=== PATIENT | male | born 1950 | race Caucasian/White ===

== ENCOUNTER → 2017-03-26 | Outpatient (CLI) | payer MEDICARE, BC ==
--- NOTE | 2017-03-26 10:05 | MR ---
EXAMINATION TYPE: MR knee RT wo con DATE OF EXAM: 03/26/2017 9:31 AM COMPARISON: NONE HISTORY: Rt, knee pain TECHNIQUE: Multiplanar, multisequence imaging of the right knee is performed without IV contrast. FINDINGS: MEDIAL MENISCUS: Comp tear posterior horn medial meniscus LATERAL MENISCUS: Complex tear posterior horn and body lateral meniscus CRUCIATE LIGAMENTS: The anterior and posterior cruciate ligaments are intact and unremarkable. COLLATERAL LIGAMENTS: The medial collateral ligament and lateral collateral ligament complex are inta ct and unremarkable. EXTENSOR MECHANISM: Visualized quadriceps and patellar tendons are intact. EFFUSION: No significant suprapatellar joint effusion. POPLITEAL CYST: There are tiny multilobulated cyst seen posterior to the tibia near the tibiofibular synchondrosis which may represent tiny popliteal fossa cyst. Tiny ganglion cyst in the differential. TRICOMPARTMENT SPACES: There is grade III chondromalacia of the patellar cartilage involving the apex of patella. Congenital bipartite patella. Narrowing of all joint space is seen with most marked quintero ges involving the medial compartment of the knee. Chondromalacia involving the articular femoral cart ilage noted. BONE MARROW SIGNAL: No focal abnormal marrow signal is appreciated. IMPRESSION: 1. 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 2. Complex tears involving the posterior horn of the medial and lateral meniscus. 3. Posterior fossa cyst or ganglion cyst as discussed above.
== END | disposition home or self-care (01) ==
LOC: RADMRIMAIN 08:43
PROVIDERS: ATTEND Family Medicine
DX: S83.231A Complex tear of medial meniscus, current injury, right knee, initial encounter (principal); S83.271A Complex tear of lateral meniscus, current injury, right knee, initial encounter; M17.11 Unilateral primary osteoarthritis, right knee; M22.41 Chondromalacia patellae, right knee

== ENCOUNTER → 2021-03-30 | Outpatient (CLI) | payer MEDICARE, BC ==
[2021-03-30 11:17] LABS: Basophils # (A) 0.1 k/uL (0-0.2); Basophils % (A) 1 %; Eosinophils # (A) 0.1 k/uL (0-0.7); Eosinophils % (A) 1 %; HCT 44.8 % (39.0-53.0); HGB 15.3 gm/dL (13.0-17.5); Lymphocytes # (A) 1.7 k/uL (1.0-4.8); Lymphocytes % (A) 31 %; MCH 30.6 pg (25.0-35.0); MCHC 34.1 g/dL (31.0-37.0); MCV 89.7 fL (80.0-100.0); Mean Platelet Volume 6.5; Monocytes # (A) 0.4 k/uL (0-1.0); Monocytes % (A) 8 %; Neutrophils # (A) 3.1 k/uL (1.3-7.7); Neutrophils % (A) 57 %; Platelet Count 283 k/uL (150-450); RDW 12.7 % (11.5-15.5); WBC 5.3 k/uL (3.8-10.6)
[2021-03-30 12:19] LABS: Appearance,Urine Clear (Clear); Bilirubin,Urine Negative (Negative); Blood,Urine Negative (Negative); Color,Urine Yellow; Glucose,Urine (UA) Negative (Negative); Ketones,Urine Negative (Negative); Leukocyte Esterase,Urine Negative (Negative); Nitrite,Urine Negative (Negative); Protein,Urine Negative (Negative); Specific Gravity,Urine 1.025 (1.001-1.035); Urobilinogen,Urine <2.0 mg/dL (<2.0)
== END | disposition home or self-care (01) ==
LOC: LABPAT 10:20
PROVIDERS: ATTEND Urology
DX: Z01.812 Encounter for preprocedural laboratory examination (principal); N40.1 Benign prostatic hyperplasia with lower urinary tract symptoms
CPT/HCPCS: 36415; 81003; 85025; 86850; 86900; 86901; 87086

== ENCOUNTER → 2021-03-30 | Outpatient (CLI) | payer MEDICARE, BC ==
[2021-03-30 15:48] LABS: African American GFR (CKD) 88.6 (60.0-200.0); Albumin 4.3 g/dL (3.80-4.90); Albumin/Globulin Ratio 1.54 (1.60-3.17); Anion Gap 5.7 mmol/L (4.00-12.00); Calcium 9.1 mg/dL (8.7-10.3); Carbon Dioxide 31.3 mmol/L (21.6-31.8); Chol/HDL Ratio 3.66; Globulin 2.8 g/dL (1.6-3.3); LDL Cholesterol,Calculated 128.4 mg/dL (0.0-131.0); Non-African American GFR(CKD) 76.5 (60.0-200.0); Potassium 4.1 mmol/L (3.5-5.5); Total Bilirubin 0.7 mg/dL (0.2-1.2); Total Protein 7.1 g/dL (6.2-8.2); VLDL Calculation 12.6 mg/dL (5.00-40.00)
== END | disposition home or self-care (01) ==
LOC: LABWHC1 10:23
PROVIDERS: ATTEND Physician Assistant Medical
DX: Z00.00 Encounter for general adult medical examination without abnormal findings (principal); Z13.228 Encounter for screening for other metabolic disorders; Z13.220 Encounter for screening for lipoid disorders; N40.1 Benign prostatic hyperplasia with lower urinary tract symptoms; Z68.28 Body mass index [BMI] 28.0-28.9, adult
CPT/HCPCS: 36415; 80053; 80061

== ENCOUNTER 2021-04-06 05:44 | Day surgery (SDC) | payer MEDICARE, BC ==
[2021-04-02 10:33] VITALS: BMI 27.1
--- NOTE | 2021-04-05 16:24 | P.HPIHPCON ---
History of Present Illness H&P Date: 04/05/21 this is a 70 yo male with hx of significant BPH, has bothersome symptoms despite medical therapy. TRUS demonstrated 120 gram prostate, with significant medial lobe. I discussed wit him given his size of his prostate the two surgical options are simple prostatectomy or HoLEP. Discussed risk and benefit of each approach. Discussed with him the risk of bleeding, infection, injury to nearby organ, persistent BPH, urinary incontinence. Also discussed risk from anesthesia with him. He understood all the risks and agreed to proceed with robotic simple prostatectomy Consent for Procedure: I have explained the operation/procedure to the patient, including the risks, benefits, side effects, alternative therapies (including not receiving the proposed treatment or service), the likelihood of the patient achieving his/her goals, and potential recuperation problems for the procedure/sedation/analgesia, as well as any blood products, if indicated. I also explained to the patient the risks, benefits and side effects of the alternatives, as well as the risks related to not receiving the proposed procedure, care, treatment, or services. Past Medical History Past Medical History: Prostate Disorder Additional Past Medical History / Comment(s): "shoulder issues from years of playing hockey", enlarged prostate History of Any Multi-Drug Resistant Organisms: None Reported Past Surgical History: Orthopedic Surgery Additional Past Surgical History / Comment(s): arthroscopy knee(not sure which knee), mole removed from back Past Anesthesia/Blood Transfusion Reactions: No Reported Reaction Smoking Status: Never smoker - Past Family History Father Family Medical History: Cancer Additional Family Medical History / Comment(s): bladder Mother Family Medical History: Blood Disorder Additional Family Medical History / Comment(s): pt does not have name of disorder Medications and Allergies Home Medications Medication Instructions Recorded Confirmed Type No Known Home Medications 04/02/21 04/02/21 History Allergies Allergy/AdvReac Type Severity Reaction Status Date / Time acetaminophen Allergy cold Verified 04/02/21 10:24 [From Darvocet-N] sweats, dizzy doxycycline [From Doryx] Allergy Unknown Verified 04/02/21 10:44 propoxyphene [From Darvon] Allergy cold Verified 04/02/21 10:24 sweats, dizzy sulfamethoxazole Allergy Rash/Hives Verified 04/02/21 10:24 [From Septra] trimethoprim [From Septra] Allergy Rash/Hives Verified 04/02/21 10:24 Surgical - Exam - General well developed, well nourished, no distress, no pain - Respiratory normal expansion, normal respiratory effort - Abdomen Abdomen: soft, non tender Assessment and Plan Assessment: 70-year-old male with history of BPH -Or for robotic simple prostatectomy
[~2021-04-06 05:44] MED LIST: HEPARIN SODIUM,PORCINE/PF 5,000 UNIT/0.5 ML SYRINGE SQ PRN
[2021-04-06] MEDS ORDERED: MIDAZOLAM 2 MG/2 ML VIAL IV PRN (05:50)
[2021-04-06] MEDS ORDERED: LIDOCAINE 1% (10MG/ML) FOR IV START INTRADERMA PRN (05:50)
[2021-04-06] MEDS ORDERED: DEXAMETHASONE SOD PHOSPHATE 4 MG/ML 1 ML VIAL IV ONE (05:50)
[2021-04-06] MEDS ORDERED: ONDANSETRON 4 MG/2 ML VIAL IVP ONE (05:50)
[2021-04-06] MEDS: LACTATED RINGERS 1,000 ML IV SCH (06:39)
[2021-04-06] MEDS ORDERED: MIDAZOLAM 2 MG/2 ML VIAL IVP ONE (06:52)
[2021-04-06] MEDS ORDERED: fentaNYL (PF) 50 MCG/ML 2 ML AMP IVP ONE (06:53)
[2021-04-06] MEDS ORDERED: HYDROmorphone 0.5 MG/0.5 ML SYRINGE IVP PRN (07:00)
[2021-04-06] MEDS ORDERED: fentaNYL (PF) 50 MCG/ML 2 ML AMP ONE (07:49)
[2021-04-06] MEDS ORDERED: NEOSTIGMINE 1 MG/ML 10 ML VIAL ONE (07:49)
[2021-04-06] MEDS ORDERED: GLYCOPYRROLATE 0.2 MG/ML 2 ML VIAL ONE (07:49)
[2021-04-06] MEDS ORDERED: PROPOFOL 10 MG/ML 20 ML VIAL IV ONE (07:49)
[2021-04-06] MEDS ORDERED: ROCURONIUM 10 MG/ML (5 ML VIAL) IV ONE (07:49)
[2021-04-06] MEDS ORDERED: SUCCINYLCHOLINE CHLORIDE 100 MG/5 ML SYR IV ONE (07:49)
[2021-04-06] MEDS ORDERED: WATER FOR INJECTION, STERILE 10 ML VIAL IV ONE (07:49)
[2021-04-06] MEDS ORDERED: LIDOCAINE 1% INJ 10MG/ML (20 ML MDV) ONE (07:49)
[2021-04-06] MEDS ORDERED: ROPIVACAINE 5 MG/ML 30 ML VIAL ONE (07:49)
[2021-04-06] MEDS ORDERED: ePHEDrine SULFATE/0.9% NACL/PF 50 MG/5 ML SYRINGE IV ONE (07:49)
[2021-04-06] MEDS ORDERED: BUPIVACAINE (PF) 0.5% 30 ML VIAL SQ ONE ×2 (08:15)
[2021-04-06] MEDS ORDERED: traMADol 50 MG TAB PO PRN (11:34)
--- NOTE | 2021-04-06 11:41 | P.OP ---
Date of Procedure: 04/06/21 Preoperative Diagnosis: BPH Postoperative Diagnosis: Same Procedure(s) Performed: Robotic-assisted laparoscopic simple prostatectomy Implants: None Anesthesia: JEANNE Surgeon: Pascual Baca Fractionating Still Operator #1: Abby Perez Estimated Blood Loss (ml): 200 Pathology: other (prostate adenoma) Condition: stable Disposition: PACU Indications for Procedure: this is a 70 yo male with hx of significant BPH, has bothersome symptoms despite medical therapy. TRUS demonstrated 120 gram prostate, with significant medial lobe. I discussed wit him given his size of his prostate the two surgical options are simple prostatectomy or HoLEP. Discussed risk and benefit of each approach. Discussed with him the risk of bleeding, infection, injury to nearby organ, persistent BPH, urinary incontinence. Also discussed risk from anesthesia with him. He understood all the risks and agreed to proceed with robotic simple prostatectomy Operative Findings: Trilobar hyperplasia with significant medial lobe Description of Procedure: After preoperative antibiotics were started, the patient was taken to the operating room. Anesthesia was induced and the patient was placed in a supine position with adequate padding of the pressure points, shoulders, back, legs and arms. He was then prepped and draped in the standard fashion. A critical pause was performed using two patient identifiers. A 16F calderon catheter was placed to gravity drainage. A pneumoperitoneum was obtained using a Veress needle, after pneumoperitoneum was obtained a 8 mm camera port was placed. Under direct vision a 8mm robotic ports was placed lateral to each rectus slightly below the camera port. The left iliac fossa 8mm port was placed. The right sales assistant right iliac fossa 12mm port and right paramedian 5mm portwere placed. After the patient was placed in the trendelenberg position, the robot was then docked to the 8mm robotic ports and then each robotic arm and tower was checked in relation to the patient's legs and hands to avoid inadvertent compression. The peritoneal cavity was inspected. Some adhesions along the left quadrant was taken down sharply An inverted U-shaped incision began laterally to the left medial umbilical ligament and extended high across the midline to the right umbilical ligament. The limbs of the "U" extended to the level of the vasa on both sides. We next developed the preperitoneal space and the space of Retzius. of note patient had inuginal hernia along the right sided. Cautery was used to dissected the bladder away from the prostate, the incision was made in close proximity to the prostate, and incision was extended laterally and at this point the plane between the adenoma and the surgical capsule is identified. Of note the patient had a significantly enlarged median lobe, and incision was made distal to the ureteral orifices. Both ureteral orifices were identified and neither was injured during the dissection . The adenoma was dissected off of the capsule by combination of blunt dissection and minimum cautery. dissection was initially started along the anterior surface and posterior surface of adenoma, and this was carried laterally. The dissection was carried to the apex, at this point the urethral-prostatic junction was visualized and the prostate was transected at the junction. Prostate adenoma was placed in an endocatch bag . A 6and 9 inch 3-0 V-Lock suture was used to anastomose the urethra and bladder, starting at the 6:00 posterior position. Mucosa was secured in every stitch, to ensure a mucosa to mucosa anastomosis. The stitch was regularly cinched and the anastomosis tightened. Additional 6 inch 3 lock was also used to completing the anterior anastomosis. The 20 Fr Calderon catheter was advanced, the bladder filled, and the anastomosis was tested. Anastomsis was watertight at 150 mL. balloon was inflated to 20 mL The robot was undocked. specimen was extracted from the supraumbilical incision. The periumbilical fascia was closed with 1-0-PDS suture in figure of 8 fashion. All ports were closed with a subcuticular 4-0 monocryl and Dermabond. Sponge, instrument, and needle counts were correct at the end of the case x2. The patient tolerated the surgery well and without complication. He awoke without difficulty and was taken to the recovery room in stable condition
[2021-04-06] MEDS: KETOROLAC 15 MG/ML 1 ML VIAL IVP SCH ×2 (12:30→17:16)
--- NOTE | 2021-04-06 14:23 | P.ANPRN ---
Procedure Note - Anesthesia - Nerve Block Performed Bilateral Erector Spinae Single Date of Procedure: 04/06/21 Procedure Start Time: 06:52 Procedure Stop Time: 06:58 Location of Patient: PreOp Indication: Acute Post-Operative Pain, Dx/Pain Location, Requested by Surgeon Sedation Type: Sedate with meaningful contact maintained Preparation: Sterile Prep Position: Prone Catheter: None Needle Types: Pajunk Needle Gauge: 21 Ultrasound used to visualize needle placement: Yes Ultrasound used to observe medication spread: Yes Injectate: 0.5% Ropivacaine (see comment for volume) (30cc total) Blood Aspirated: No Pain Paresthesia on Injection Noted: No Resistance on Injection: Normal Image Stored and Saved: Yes Events: Uneventful and Well Tolerated
[2021-04-06] MEDS: D5-0.45% NACL WITH KCL 20MEQ/L 1,000 ML IV SCH ×2 (16:09→23:40)
[2021-04-06] MEDS: HEPARIN SODIUM,PORCINE/PF 5,000 UNIT/0.5 ML SYRINGE SQ SCH (17:16)
[2021-04-07] MEDS: KETOROLAC 15 MG/ML 1 ML VIAL IVP SCH ×3 (00:30→12:32)
[2021-04-07] MEDS: HEPARIN SODIUM,PORCINE/PF 5,000 UNIT/0.5 ML SYRINGE SQ SCH ×2 (00:30→07:41)
[2021-04-07] MEDS: LACTATED RINGERS 1,000 ML IV SCH (03:52)
[2021-04-07] MEDS: D5-0.45% NACL WITH KCL 20MEQ/L 1,000 ML IV SCH (07:31)
[2021-04-07 07:53] VITALS: BP 129/73; PULSE 62; RESP 18; TEMP 97.6
--- NOTE | 2021-04-07 11:32 | P.DS ---
Providers Attending physician: Pascual Baca MD Primary care physician: [facility] Course: This is a 71-year-old male with history of BPH. He underwent a robotic simple prostatectomy on April 06. Please see op note dated April 06 for full Surgery detail. He was admitted to the hospital postoperatively. He did well in the postoperative period. He was discharged home on postoperative day #1. At time of discharge was tolerating a diet, ambulating, and pain was well-controlled. His abdominal exam was benign, his incisions were CDI. He was discharged home with the Agustin catheter. Plan - Discharge Summary Discharge Rx Participant: Yes New Discharge Prescriptions: New Cephalexin [Keflex] 500 mg PO Q12HR 3 Days #6 cap Discharge Medication List Cephalexin [Keflex] 500 mg PO Q12HR 3 Days #6 cap 04/07/21 [Rx] Activity/Diet/Wound Care/Special Instructions: -No heavy lifting or straining for 4 weeks. -Increase fluid intake, and it is normal to some blood in the urine -Start your antibiotics, 1 day prior to your clinic follow-up
== END 2021-04-07 13:55 | disposition home or self-care (01) ==
LOC: OR 05:44 → 4SSUR 15:14 → OR 04-07 13:55
PROVIDERS: ATTEND Urology
DX: N40.0 Benign prostatic hyperplasia without lower urinary tract symptoms (principal); Z20.822 Contact with and (suspected) exposure to COVID-19; N41.0 Acute prostatitis; Z88.6 Allergy status to analgesic agent; Z88.5 Allergy status to narcotic agent; Z88.2 Allergy status to sulfonamides
CPT/HCPCS: 55899; S2900; 36415; 64999; 76942; 86850; 86900; 86901; 87635; 88307

== ENCOUNTER → 2022-01-22 | Outpatient (CLI) | payer MEDICARE, BC ==
--- NOTE | 2022-01-22 11:18 | CT ---
EXAMINATION TYPE: CT brain wo/w con DATE OF EXAM: 01/22/2022 COMPARISON: None. HISTORY: left sided weakness and unbalanced CT DLP: 2190 mGycm Automated exposure control for dose reduction was used. CONTRAST: CT scan of the head is performed without and with IV Contrast, patient injected with 100mL mL of Isov ue 300. FINDINGS: Noncontrast images show no acute intracranial hemorrhage or midline shift. Mild ventricular and sulcal prominence is seen. Mild low attenuation in the periventricular white mat ter. Postcontrast images show no suspicious enhancing masses. The globes are intact and the visualiz ed sinuses are clear. No suspicious opacification of the mastoid air cells bilaterally. IMPRESSION: Unremarkable study.
== END | disposition home or self-care (01) ==
LOC: RADCTMAIN 09:42
PROVIDERS: ATTEND Family Medicine
DX: H57.02 Anisocoria (principal); R53.1 Weakness
CPT/HCPCS: 82565; 84520; 70470; 36415; Q9967

== ENCOUNTER 2022-05-15 13:58 | Emergency (ER) | payer MEDICARE, BC ==
[2022-05-15 14:31] VITALS: BP 139/79; PULSE 67; RESP 16; TEMP 97.7
[2022-05-15] MEDS ORDERED: LIDOCAINE 1% INJ 10MG/ML (5 ML VIAL-PF) SQ ONE (15:21)
[2022-05-15] MEDS ORDERED: DIPH,PERTUS(ACELL)TETVAC-LF 0.5 ML VIAL IM ONE (15:23)
--- NOTE | 2022-05-15 15:51 | ED ---
General Adult HPI - General Chief complaint: Wound/Laceration Stated complaint: Laceration R arm Time Seen by Provider: 05/15/22 15:18 Source: patient, RN notes reviewed Mode of arrival: ambulatory Limitations: no limitations - History of Present Illness Initial comments: Patient is a pleasant 72-year-old male presenting to the emergency department with laceration of the right forearm. Incident occurred just prior to arrival. Patient was on a stepladder when he slid down and struck the nail on the wall. Patient sustained laceration to the right arm. Patient does take aspirin daily. No other area of injury or concern. Last tetanus immunization was possibly more than 5 years ago. - Related Data Previous Rx's Medication Instructions Recorded Cephalexin [Keflex] 500 mg PO Q12HR 3 Days #6 cap 04/07/21 Allergies Allergy/AdvReac Type Severity Reaction Status Date / Time acetaminophen Allergy cold Verified 05/15/22 14:31 [From Darvocet-N] sweats, dizzy doxycycline [From Doryx] Allergy Unknown Verified 05/15/22 14:31 propoxyphene [From Darvon] Allergy cold Verified 05/15/22 14:31 sweats, dizzy sulfamethoxazole Allergy Rash/Hives Verified 05/15/22 14:31 [From Septra] trimethoprim [From Septra] Allergy Rash/Hives Verified 05/15/22 14:31 Review of Systems ROS Statement: Those systems with pertinent positive or pertinent negative responses have been documented in the HPI. ROS Other: All systems not noted in ROS Statement are negative. Constitutional: Denies: fever Eyes: Denies: eye pain ENT: Denies: ear pain Respiratory: Denies: cough Cardiovascular: Denies: chest pain Endocrine: Denies: fatigue Gastrointestinal: Denies: abdominal pain Genitourinary: Denies: dysuria Musculoskeletal: Denies: back pain Skin: Reports: as per HPI Neurological: Denies: weakness Past Medical History Past Medical History: Prostate Disorder Additional Past Medical History / Comment(s): "shoulder issues from years of playing hockey", enlarged prostate History of Any Multi-Drug Resistant Organisms: None Reported Past Surgical History: Orthopedic Surgery Additional Past Surgical History / Comment(s): arthroscopy knee(not sure which knee), mole removed from back Past Anesthesia/Blood Transfusion Reactions: No Reported Reaction Past Psychological History: No Psychological Hx Reported Smoking Status: Never smoker Past Alcohol Use History: Occasional Past Drug Use History: None Reported - Past Family History Father Family Medical History: Cancer Additional Family Medical History / Comment(s): bladder Mother Family Medical History: Blood Disorder Additional Family Medical History / Comment(s): pt does not have name of disorder General Exam Limitations: no limitations General appearance: alert, in no apparent distress Head exam: Present: normocephalic Eye exam: Present: normal appearance Neck exam: Present: normal inspection Respiratory exam: Present: normal lung sounds bilaterally Cardiovascular Exam: Present: regular rate, normal rhythm GI/Abdominal exam: Present: soft. Absent: tenderness Extremities exam: Present: other (Right forearm laceration, 6 cm, mid forearm on the volar/ulnar side) Neurological exam: Present: alert. Absent: motor sensory deficit Psychiatric exam: Present: normal affect, normal mood Skin exam: Present: other (6 cm laceration right forearm) Course Vital Signs 05/15/22 14:28 Temperature 97.7 F Pulse Rate 67 Respiratory 16 Rate Blood Pressure 139/79 O2 Sat by Pulse 96 Oximetry Procedures - Laceration Laceration #1 Consent Obtained: verbal consent Indication: laceration Site: upper extremity Description: linear Depth: simple, single layer Anesthetic Used: lidocaine 1% Amount (mls): 7 Pre-repair: wound explored, irrigated extensively Type of Sutures: nylon Size of Sutures: 4-0 Number of Sutures: 10 Technique: simple, interrupted, running Patient Tolerated Procedure: well, no complications Disposition Clinical Impression: Laceration Disposition: HOME SELF-CARE Condition: Stable Instructions (If sedation given, give patient instructions): Laceration (ED) Additional Instructions: Suture removal in 12 days. Please follow-up with primary care physician in the next couple days for wound check. Twice daily wash with soap and water, apply antibiotic ointment, and keep bandaged. Return for bleeding, redness, swelling, worsening symptoms or any other concerns. Is patient prescribed a controlled substance at d/c from ED?: No Referrals: Gita Alcazar MD [Primary Care Provider] - 1-2 days Time of Disposition: 15:50
== END 2022-05-15 16:13 | disposition home or self-care (01) ==
LOC: EC 13:58
DX: S51.811A Laceration without foreign body of right forearm, initial encounter (principal); Z23 Encounter for immunization; Z88.2 Allergy status to sulfonamides; Z79.82 Long term (current) use of aspirin; W22.8XXA Striking against or struck by other objects, initial encounter; Y93.89 Activity, other specified
CPT/HCPCS: 99282; 12002; 90471; 90715; J2001